=== PATIENT | female | born 2000 | race Caucasian/White ===

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

== ENCOUNTER 2022-01-25 12:42 | Outpatient (CLI) | payer BC, SELFPAY ==
--- NOTE | ~2022-01-25 | XR_ITS ---
XR foot LT min 3V DATE: 01/25/2022 13:12 INDICATION: Left fourth toe distal injury TECHNIQUE: 4 views of left foot, additional lateral view of forefoot COMPARISON: None FINDINGS: No fracture or dislocation, periosteal reaction or bone destruction is detected. There is s oft tissue swelling of the fourth digit. No radiographic soft tissue foreign body or subcutaneous emp hysema is evident. More optimal radiographic evaluation of the fourth toe could be obtained by dedicated fourth toe radi ographs. IMPRESSION: Soft tissue swelling of the fourth digit; no apparent bony abnormality Dedicated fourth toe radiographs would provide better detail of the fourth toe Reviewed, dictated and finalized at location B. IMPRESSION: Soft tissue swelling of the fourth digit; no apparent bony abnormal ity Dedicated fourth toe radiographs would provide better detail of the fourth toe
== END 2022-01-25 12:43 | disposition home or self-care (01) ==
PROVIDERS: PCP Pediatrics; Visit Provider Pediatrics
DX: S99.921A Unspecified injury of right foot, initial encounter (principal); X58.XXXA Exposure to other specified factors, initial encounter; M79.89 Other specified soft tissue disorders
CPT/HCPCS: 73630